=== PATIENT | female | born 1970 | race African-American/Black ===

== ENCOUNTER 2018-02-23 08:52 | Emergency (ER) | payer MEDICAID ==
[~2018-02-23] VITALS: Ht 170.2 cm; Wt 59.0 kg
[~2018-02-23 08:52] MED LIST: ALPR2TAB2 PO; HYDR1TAB16 PO
[2018-02-23 08:55] VITALS: BP 168/114
--- NOTE | 2018-02-23 09:00 | NUR ---
PT TO LOBBY
--- NOTE | 2018-02-23 09:28 | NUR ---
PT STATED THAT SHE HAS A TOOTH ACHE ON RIGHT TOP AND BOTTOM AND IS REQUESTING ABX. PT IS ALERT, ORIENTED, WITH NAD. CALL LIGHT WITHIN REACH.
== END 2018-02-23 09:56 | disposition home or self-care (01) ==
LOC: ED 09:50
DX: K08.89 Other specified disorders of teeth and supporting structures (principal); Z88.6 Allergy status to analgesic agent
CPT/HCPCS: 99283